=== PATIENT | female | born 1995 | race Caucasian/White ===

== ENCOUNTER → 2016-10-07 | Outpatient (CLI) | payer OTHER ==
[~2016-10-07] MED LIST: PRENTAB65 PO
[2016-10-07 14:41] LABS: BASO % 0.2 %; BASO ABS # 0.02 K/uL (0-0.2); COMPLETE YES; EOS % 1.4 %; HEMATOCRIT 41.6 % (37-47); IG% 0.2 %; LYMPH % 27.9 %; LYMPH ABS # 2.39 K/uL (1.2-3.4); MEAN CELL VOLUME 91.6 fL (80-100); MEAN CORPUSCULAR HEMOGLOBIN 30.2 pg (25-34); MEAN CORPUSCULAR HGB CONC 32.9 g/dl (32-36); MEAN PLATELET VOLUME 9.7 fL (7.4-10.4); MONO % 6.2 %; NEUT % 64.1 %; PLATELET COUNT 338 K/uL (130-400); RED BLOOD COUNT 4.54 M/uL (4.2-5.4); WHITE BLOOD COUNT 8.56 K/uL (4.8-10.8)
== END | disposition home or self-care (01) ==
LOC: C.LAB1850 12:33
PROVIDERS: ATTEND Obstetrics & Gynecology
DX: Z34.90 Encounter for supervision of normal pregnancy, unspecified, unspecified trimester (principal)

== ENCOUNTER → 2016-10-07 | Outpatient (CLI) | payer OTHER ==
[2016-10-07 15:51] LABS: URINE APPEARANCE TURBID (CLEAR); URINE BILIRUBIN NEG (NEG); URINE COLOR YELLOW; URINE EPITHELIAL CELL AUTO 20-30 /lpf (0-5); URINE NITRITE NEG (NEG); URINE PH 7.5 (4.5-7.5); URINE SPECIFIC GRAVITY 1.017 (1.000-1.030); UROBILINOGEN NEG (NEG)
[2016-10-07 15:53] LABS: MANUAL MICROSCOPIC REQUIRED? NO; REVIEW REQ? NO
[2016-10-09 15:08] LABS: CHLAMYDIA TRACH RNA*** NOT DETECTED (NOT DETECTED); GC (NEIS GONORRHOEAE)RNA** NOT DETECTED (NOT DETECTED)
== END | disposition home or self-care (01) ==
LOC: C.LABSPEC 15:38
PROVIDERS: ATTEND Obstetrics & Gynecology
DX: Z34.90 Encounter for supervision of normal pregnancy, unspecified, unspecified trimester (principal)

== ENCOUNTER → 2016-12-04 | Outpatient (CLI) | payer OTHER ==
[2016-12-04 14:58] LABS: GTGD 50 Grams
== END | disposition home or self-care (01) ==
LOC: C.LAB1850 11:09
PROVIDERS: ATTEND Obstetrics & Gynecology
DX: Z34.90 Encounter for supervision of normal pregnancy, unspecified, unspecified trimester (principal)

== ENCOUNTER → 2017-03-04 | Outpatient (CLI) | payer OTHER ==
[2017-03-04 16:25] LABS: URINE APPEARANCE CLOUDY (CLEAR); URINE BILIRUBIN NEG (NEG); URINE COLOR YELLOW; URINE EPITHELIAL CELL AUTO >30 /lpf (0-5); URINE NITRITE NEG (NEG); URINE PH 7.5 (4.5-7.5); URINE SPECIFIC GRAVITY 1.012 (1.000-1.030); UROBILINOGEN NEG (NEG)
[2017-03-04 16:28] LABS: MANUAL MICROSCOPIC REQUIRED? NO; REVIEW REQ? YES
[2017-03-04 18:05] LABS: GTGD 50 Grams
[2017-03-04 19:48] LABS: HEMATOCRIT 35.9 % (37-47)
== END | disposition home or self-care (01) ==
LOC: C.LAB1850 14:47
PROVIDERS: ATTEND Obstetrics & Gynecology
DX: Z34.93 Encounter for supervision of normal pregnancy, unspecified, third trimester (principal)

== ENCOUNTER → 2017-04-21 | Outpatient (CLI) | payer OTHER | END | disposition home or self-care (01) | LOC: C.LABSPEC 13:39 | PROVIDERS: ATTEND Obstetrics & Gynecology | DX: Z34.93 Encounter for supervision of normal pregnancy, unspecified, third trimester (principal) ==

== ENCOUNTER 2017-04-29 12:50 | Outpatient (CLI) | payer OTHER ==
[~2017-04-29] VITALS: Ht 170.2 cm; Wt 97.5 kg
[2017-04-29] MEDS ORDERED: D5W AND LACTATED RINGERS 500 ML IV ONE (13:13)
[2017-04-29] MEDS ORDERED: D5W AND LACTATED RINGERS 1,000 ML IV SCH (13:13)
[2017-04-29] MEDS ORDERED: ONDANSETRON INJ 2 MG/ML 2 ML VIAL ONE (14:16)
[2017-04-29] MEDS ORDERED: ONDANSETRON INJ 2 MG/ML 2 ML VIAL IV PRN (14:30)
[2017-04-29 14:55] VITALS: Ht 170.2 cm; Wt 97.5 kg
[2017-04-29] MEDS ORDERED: PRENTAB65 PO (14:55)
[2017-04-29] MEDS ORDERED: NURSING VERBAL MED ORDER ONE (15:15)
[2017-04-29] MEDS ORDERED: ACETAMINOPHEN 325 MG TAB ONE (15:17)
[2017-04-29] MEDS ORDERED: ACETAMINOPHEN 325 MG TAB PO ONE (15:30)
== END 2017-04-29 16:55 | disposition home or self-care (01) ==
LOC: C.LD 12:50 → C.OPB 12:50
PROVIDERS: ATTEND Obstetrics & Gynecology
DX: O99.283 Endocrine, nutritional and metabolic diseases complicating pregnancy, third trimester (principal); E86.0 Dehydration; O99.613 Diseases of the digestive system complicating pregnancy, third trimester; K52.9 Noninfective gastroenteritis and colitis, unspecified; O36.8130 Decreased fetal movements, third trimester, not applicable or unspecified; Z3A.37 37 weeks gestation of pregnancy

== ENCOUNTER 2017-05-17 04:55 | Inpatient (IN) | payer OTHER ==
[~2017-05-17] VITALS: Ht 170.2 cm; Wt 96.2 kg
[2017-05-17] MEDS ORDERED: LACTATED RINGER'S 1000ML 1,000 ML IV PRN (05:30)
[2017-05-17] MEDS ORDERED: LACTATED RINGER'S 1000ML 1,000 ML IV SCH (05:30)
[2017-05-17 05:38] VITALS: Ht 170.2 cm; Wt 96.2 kg
[2017-05-17 06:26] LABS: MEAN CELL VOLUME 92.7 fL (80-100); MEAN CORPUSCULAR HEMOGLOBIN 30.2 pg (25-34); MEAN CORPUSCULAR HGB CONC 32.6 g/dl (32-36); MEAN PLATELET VOLUME 10.1 fL (7.4-10.4); PLATELET COUNT 205 K/uL (130-400); WHITE BLOOD COUNT 11.35 K/uL (4.8-10.8)
[2017-05-17] MEDS ORDERED: BUPIVACAINE 0.25% 30 ML VIAL ONE (06:36)
[2017-05-17] MEDS ORDERED: FENTANYL CITRATE INJ 50 MCG/1 ML 2 ML VIAL ONE (06:37)
[2017-05-17] MEDS ORDERED: FENTANYL 2MCG/ML ROPIV 1.25MG/ML 100ML BAG EPI ONE (06:37)
[2017-05-17] MEDS ORDERED: EpHEDrine SULFATE INJ 50 MG/ML AMP ONE (06:37)
[2017-05-17] MEDS ORDERED: ONDANSETRON INJ 2 MG/ML 2 ML VIAL IV PRN (08:15)
[2017-05-17] MEDS ORDERED: FENTANYL 2MCG/ML ROPIV 1.25MG/ML 100ML BAG EPI PRN (08:15)
[2017-05-17] MEDS ORDERED: NALOXONE HCL INJ 0.4 MG/1 ML VIAL/CARP IV PRN (08:15)
[2017-05-17] MEDS ORDERED: EpHEDrine SULFATE INJ 50 MG/ML AMP IV PRN (08:15)
[2017-05-17] MEDS ORDERED: NALOXONE HCL INJ 1 MG in SODIUM CHLORIDE 0.9% 1000ML 1,000 ML IV PRN (08:15)
[2017-05-17] MEDS ORDERED: NALBUPHINE HCL INJ 10 MG/ML AMP IV PRN (08:15)
[2017-05-17] MEDS ORDERED: DiphenhydrAMINE HCL 50 MG/ML VIAL IV PRN (08:15)
[2017-05-17] MEDS ORDERED: LACTATED RINGER'S 1000ML 500 ML IV PRN ×2 (08:15→08:33)
[2017-05-17] MEDS ORDERED: OXYTOCIN 30 UNITS/500ML NSS IV PRN ×2 (08:45→12:00)
[2017-05-17] MEDS ORDERED: HYDROCORTISONE ACETATE 25 MG SUPP PR PRN (12:00)
[2017-05-17] MEDS ORDERED: DIPHTHERIA/TETANUS/PERTUSSIS 0.5 ML SYR/VIAL IM. ONE (12:00)
[2017-05-17] MEDS ORDERED: ACETAMINOPHEN 325 MG TAB PO PRN (12:00)
[2017-05-17] MEDS ORDERED: BENZOCAINE 20% AER SPR 82.5 GM CAN EXT PRN (12:00)
[2017-05-17] MEDS ORDERED: LANOLIN OINT EXT PRN ×2 (12:00)
[2017-05-17] MEDS ORDERED: SUPERCREAM 0.870 % 15GM JAR EXT PRN (12:00)
[2017-05-17] MEDS ORDERED: ACETAMINOPHEN/CODEINE 300/30MG TAB PO PRN (12:00)
[2017-05-17] MEDS: IBUPROFEN 600 MG TAB PO PRN ×3 (13:01→22:06)
--- NOTE | 2017-05-17 14:36 | DELIVERY SUMMARY ---
DATE OF OPERATION: 05/17/2017 DATE OF DELIVERY: 05/17/2017 FINDINGS: Viable male infant with Apgars of 8 and 9. Baby delivered over an intact perineum. Nuchal cord x1 reduced on the perineum. Cord gases, cord blood samples obtained. Placenta delivered spontaneously. Estimated blood loss 300 mL. LABOR NOTE: The patient is a 21-year-old 2, para 1 with an EDC of 19 May at 39+ weeks gestational age; who presented to labor and delivery with complaint of spontaneous onset of labor. The patient states contractions began shortly after midnight. She denied rupture of membranes or vaginal bleeding. The patient has had a benign course. Her blood type O positive, antibody negative, rubella immune, hepatitis B negative. She declined a quad screen. She had normal 1 hour Glucola x2 and a negative 3rd trimester beta strep culture. Upon admission, patient was 4 cm dilated, 50% efface, -2 station, tracing was category 1, she was neto regularly. Anesthesia was consulted and an epidural was placed. Following placement of the epidural, contraction spaced out and Pitocin augmentation was initiated. The patient began to develop decelerations with contractions returned to baseline, necessitating discontinuation of the Pitocin temporarily. scalp electrode was applied, positional changes were employed and Pitocin was reinitiated. The patient progressed to full dilatation, began her second stage, she pushed for approximately 30 minutes, delivering a viable male with description as above. Nuchal cord x1 was reduced on the perineum. Cord gases and cord blood samples obtained. Placenta was delivered spontaneously. Inspection of the perineum was found to be intact. Estimated blood loss was 300 mL. Sponge and needle count was correct. I attest to the content of the Intraoperative Record and any orders documented therein. Any exception s are noted below.
--- NOTE | 2017-05-17 14:36 | Anesthesia Procedure Note ---
Anesthesia Epidural Removal Nt Date & Time May 17, 2017 at 14:36 Vital Signs Pain Intensity: 4.0 Notes Mental Status: alert / awake / arousable, participated in evaluation Nausea / Vomiting: adequately controlled Pain: adequately controlled Airway Patency, RR, SpO2: stable & adequate BP & HR: stable & adequate Hydration State: stable & adequate Neuraxial Anesthesia: was administered Anesthetic Complications: no major complications apparent, pt satisfied with anesthetic care Epidural: removed without complications, with tip intact
[2017-05-17 15:50] VITALS: BP 128/79; PULSE 92; TEMP 36.9
[2017-05-17 19:10] VITALS: BP 133/78; PULSE 92; TEMP 36.5
[2017-05-17] MEDS: DOCUSATE SODIUM 100 MG CAP PO SCH (20:26)
[2017-05-17] MEDS: ACETAMINOPHEN/CODEINE 300/30MG TAB PO PRN (22:05)
[2017-05-17 23:55] VITALS: BP 127/79; PULSE 94; TEMP 36.8
[2017-05-18] MEDS: IBUPROFEN 600 MG TAB PO PRN ×4 (03:04→21:48)
[2017-05-18 03:10] VITALS: BP 116/78; PULSE 85; TEMP 36.8
--- NOTE | 2017-05-18 07:22 | Progress Note ---
Subjective May 18, 2017. Subjective conversation w/ patient, physical exam Ambulation: ambulating normally Diet Tolerance: Regular Diet Feeding Type: Breast Feeding Objective Vital Signs Date Time Temp Pulse Resp B/P (MAP) Pulse Ox O2 Delivery O2 Flow Rate FiO2 05/18/17 03:10 36.8 85 18 116/78 (91) Room Air 05/17/17 23:55 Room Air 05/17/17 23:55 36.8 94 16 127/79 (95) Room Air 05/17/17 19:10 36.5 92 18 133/78 (96) Room Air 05/17/17 15:50 Room Air 05/17/17 15:50 36.9 92 18 128/79 (95) Room Air Physical Exam General Appearance: WELL-APPEARING, NO APPARENT DISTRESS Fundus: Firm, Non-Tender Extremities: no calf tenderness Laboratory Results Last 24 Hours Test 05/18/17 04:44 Assessment and Plan Post- Day#: 1 Continue Routine Care: - doing well - desires d/c - instructions given - f/u in 6 weeks
--- NOTE | 2017-05-18 07:24 | Discharge Instructions ---
Discharge Instructions Date of Service May 18, 2017. Admission Reason for Admission: LABOR Discharge Discharge Diagnosis / Problem: same Discharge Goals Goal(s): Routine recovery after delivery Medications Continue Dispensed Medications: supercream, dermaplast Activity Recommendations Activity Limitations: as noted below . Current Hospital Diet Patient's current hospital diet: Regular OB Diet Discharge Diet Recommended Diet: Regular OB Diet Procedures Procedures Performed: Pending Studies Studies pending at discharge: no Medical Emergencies . Who to Call and When: Medical Emergencies: If at any time you feel your situation is an emergency, please call 911 immediately. . Non-Emergent Contact Non-Emergency issues call your: Administration Dean Call Non-Emergent contact if: you have a fever, temperature is above 100.5 . . "Provider Documentation" section prepared by Dandre Black. . VTE Core Measure Inpt VTE Proph given/why not?: Treatment not indicated
[2017-05-18 07:38] LABS: HEMATOCRIT 35.7 % (37-47)
[2017-05-18 07:40] VITALS: BP 128/84; PULSE 89; TEMP 36.7
[2017-05-18] MEDS: PRENATAL VITAMIN TAB PO SCH (07:41)
[2017-05-18] MEDS: FERROUS SULFATE 325 MG TAB PO SCH (07:41)
[2017-05-18] MEDS: DOCUSATE SODIUM 100 MG CAP PO SCH ×2 (07:41→19:34)
[2017-05-18 11:50] VITALS: BP 121/80; PULSE 87; TEMP 36.8
[2017-05-18 15:50] VITALS: BP 139/95; PULSE 103; TEMP 36.7
[2017-05-18] MEDS ORDERED: BISACODYL 5 MG TABEC PO SCH (20:00)
[2017-05-19 00:10] VITALS: BP 131/80; PULSE 97; TEMP 36.5
[2017-05-19] MEDS: IBUPROFEN 600 MG TAB PO PRN ×2 (02:29→08:26)
[2017-05-19] MEDS: ACETAMINOPHEN/CODEINE 300/30MG TAB PO PRN (06:01)
[2017-05-19 07:30] VITALS: BP 131/80; PULSE 80; TEMP 36.5
--- NOTE | 2017-05-19 07:55 | Progress Note ---
Subjective May 19, 2017. Subjective conversation w/ patient, physical exam, lab review Voiding: no voiding problems Passing Gas: Yes Diet Tolerance: Regular Diet Lochia: Small Feeding Type: Breast Feeding Pain: controlled with oral pain meds Objective Vital Signs Date Time Temp Pulse Resp B/P (MAP) Pulse Ox O2 Delivery O2 Flow Rate FiO2 05/19/17 07:30 36.5 80 20 131/80 (97) 05/19/17 00:10 36.5 97 16 131/80 (97) 05/19/17 00:10 Room Air 05/18/17 15:50 36.7 103 18 139/95 (110) Room Air 05/18/17 15:50 Room Air 05/18/17 11:50 36.8 87 18 121/80 (94) Room Air Physical Exam General Appearance: WELL-APPEARING, WD/WN, NO APPARENT DISTRESS Abdomen: non tender, soft Fundus: Firm, Non-Tender, Relation to Umbilicus (at u) Extremities: non-tender, normal inspection, no pedal edema Assessment and Plan Post- Day#: 2 Continue Routine Care: Doing well. Plan d/c today or rooming in if baby stays. Instructions reviewed.
[2017-05-19] MEDS: DOCUSATE SODIUM 100 MG CAP PO SCH (08:25)
[2017-05-19] MEDS: FERROUS SULFATE 325 MG TAB PO SCH (08:25)
[2017-05-19] MEDS: PRENATAL VITAMIN TAB PO SCH (08:26)
--- NOTE | 2017-05-19 10:35 | Discharge Instructions ---
Discharge Instructions Date of Service May 19, 2017. Admission Reason for Admission: LABOR Discharge Discharge Diagnosis / Problem: recovery from normal delivery Discharge Goals Goal(s): Routine recovery after delivery Medications Continue Dispensed Medications: supercream, dermaplast, tucks, lansinoh Activity Recommendations Activity Limitations: per Instructions/Follow-up section . Instructions / Follow-Up Instructions / Follow-Up ACTIVITY RECOMMENDATIONS: * Gradual return to full activity over the next 2-3 weeks. * No lifting - nothing heavier than baby over the next 2-3 weeks. * Do not engage in vigorous exercise, sexual activity or sports until cleared by your physician. * Do not drive or operate any motorized equipment until cleared by your physician. * You may shower/bathe daily. MEDICATIONS: For discomfort or pain, you may use Acetaminophen (Tylenol), Ibuprofen (Advil), or Naproxen (Aleve) following the package directions. For constipation you may use Colace following the package directions. BREAST CARE: If you are not breast feeding: * Wear a supportive bra 24 hours a day for one to two weeks. * Avoid stimulating your breasts and nipples as much as possible during the first few weeks after delivery. * When taking a shower, have the warm water hit your back, not breasts. * When your breasts feel full, apply ice packs. Usually three to four times a day helps ease the discomfort. * Take a mild pain medication (Tylenol / Motrin) when you are uncomfortable. If breast feeding: * Use breast milk to lubricate nipples. Lansinoh cream may be used for sore nipples. You do not need to remove cream prior to breast feeding. If using a different brand of cream, check the label for directions regarding removal of cream prior to nursing. * Wear a supportive bra. * If having problems with breasts or breast feeding, call a operational risk consultant or your health care provider. EPISIOTOMY CARE: After delivery, if you have an episiotomy (stitches), the following steps will ease discomfort and aid healing. * For the first 24 hours after delivery, place ice packs next to your episiotomy to help reduce swelling. * After the first 24 hour-period, sitz baths, either portable or in the tub, are suggested. A shower with a shower arm sprayed over the episiotomy may be comforting. * Yana care should be done after each voiding and bowel movement. Squirt warm water from a plastic bottle over the perineum (region of the body between the anus and urinary opening) and pat dry. * Use Dermoplast to ease discomfort. Shake container. [place] directly over the episiotomy. Place a Tucks on a clean sanitary pad next to your episiotomy. SPECIAL CARE INSTRUCTIONS: When you are discharged from the hospital, it is important for you to follow the instructions listed below: * During the first week at home, you should be able to care for yourself and your baby. In addition, the usual light household activities are encouraged. * Limit your activities to the way you feel. Do not try to clean the house or move furniture. Be sensible. * If you actively engage in sports and have done so up until the time of your delivery, you may resume these activities as soon as you feel able. This may take up to one month or even longer. Use good judgment. * Continue to take your vitamins for at least six weeks after the of your baby. * Your diet need not be limited unless you were on a special diet before your delivery. Breast-feeding mothers need around 2500 calories per day and at least 64-80 ounces of fluid per day (8 to 10 glasses). * You should eat foods from the four major food groups. Crash diets or fad diets are to be avoided. Eating lean meats, fresh fruits and vegetables, low-fat dairy products, high fiber foods and a regular exercise program, will help you get back to your pre- weight without putting your health at risk. * Constipation is sometimes a problem after delivery. Take a mild laxative as needed. If breast feeding, Milk of Magnesia is acceptable to use. You may use a suppository or Fleets enema if no episiotomy. * A daily shower or tub bath is suggested. Be sure to thoroughly and gently dry the perineum. * A bloody vaginal discharge will usually continue until around four weeks post . A small amount of bleeding may continue for as long as six weeks. Vaginal discharge changes from the bright red bleeding after delivery to pink then brownish and finally yellowish-pink before becoming white and disappearing. * Bleeding may increase with activity. Your first period may come in 4-8 weeks. If you are breast feeding, your period may be delayed even longer. * [place] (sex) can begin whenever both you and your partner feel comfortable and do not have any form of genital infection. It is recommended that you wait at least six weeks for internal and external healing to occur. If you have questions, please talk to your health care practitioner. A condom should be used to prevent infection and . * Foreplay, gentle intercourse and lubrication is very important the first several times to prevent pain. A water-based lubricant such as K-Y jelly or Astroglide may be used. * If you have RH negative blood and your baby is RH positive, you will receive RHOGAM by injection prior to discharge. The nurse will give you a card to keep with you that has the date and place that you received RHOGAM after delivery. * During your care, you had a Rubella screen done to check for the presence of rubella antibodies in your blood. If your test was negative, you will receive a Rubella vaccine prior to discharge. This vaccine may cause a fever, soreness at the injection site and flu-like symptoms. If these symptoms persist, notify your health care practitioner. is not advised for one month after a Rubella vaccine. * Verbalizes understanding of car seat law as reviewed with patient nursing. * Car Seat hand-out given and reviewed with patient by nursing. * Shaken baby information reviewed with patient by nursing. Call you doctor if: * Heavy bleeding (saturating several pads an hour) or passing clots the size of your fist. * A fever >101 degrees F (38.3 degrees C) on two occasions four hours apart and /or chills. * Unusual pain in the pelvic or vaginal areas. * "Baby Blues" lasting longer than two weeks. If you have any questions or concerns, call your health care practitioner at . FOLLOW UP VISIT: * Please call the office at to schedule a 6 week examination. It is important you keep this appointment. It is important for you to make arrangements for either yearly or twice yearly check-ups thereafter. Current Hospital Diet Patient's current hospital diet: Regular OB Diet Discharge Diet Recommended Diet: Regular OB Diet Procedures Procedures Performed: Pending Studies Studies pending at discharge: no Medical Emergencies . Who to Call and When: Medical Emergencies: If at any time you feel your situation is an emergency, please call 911 immediately. . Non-Emergent Contact Non-Emergency issues call your: Biological Inspector . . "Provider Documentation" section prepared by Marisela Rodríguez. . VTE Core Measure Inpt VTE Proph given/why not?: Treatment not indicated
[2017-05-19 12:45] VITALS: BP_DIAS 80; PULSE 80; TEMP 36.5
== END 2017-05-19 12:45 | disposition home or self-care (01) | DRG 775 ==
LOC: C.OPB 04:55 → C.LD 04:55 → C.OPB 05:31 → C.OBG 15:04 → EDSTATUS 05-19 04:54
PROVIDERS: ADMIT Obstetrics & Gynecology; ATTEND Obstetrics & Gynecology
PROC: 10E0XZZ Delivery of Products of Conception, External Approach (ICD-10-PCS; principal; 2017-05-17)
DX: O69.81X0 Labor and delivery complicated by cord around neck, without compression, not applicable or unspecified (principal); O76 Abnormality in fetal heart rate and rhythm complicating labor and delivery; Z3A.39 39 weeks gestation of pregnancy; Z37.0 Single live birth

== ENCOUNTER 2021-11-08 07:30 | Inpatient (IN) ==
--- NOTE | 2021-11-01 15:43 | History & Physical Report ---
Date of Service November 01, 2021 Assessment & Plan (1) Dichorionic diamniotic twin : Plan: Dichorionic diamniotic twin gestation at 38 weeks now presents for primary section with bilateral tubal ligation. The procedures of both the section and tubal ligation were reviewed at length with the patient and all her questions were answered to her satisfaction. The risk for both ectopic and intrauterine pregnancies following the tubal ligation were also reviewed with the patient and she would still like to proceed. History of Present Illness Primary Care Provider: Olivia Mobley MD Patient is a 26-year-old 3 para 2-0-0-2 female EDC of 11/22/2021 who presents with dichorionic diamniotic twins at 38 weeks for primary section. Patient has a history of PCOS and conceived this with Femara. She has had 2 prior spontaneous vaginal deliveries. She would like to proceed with primary low-transverse section regardless of the twins positions. She is also requesting a bilateral tubal ligation at the time of the section. has otherwise been uncomplicated, the twins have been appropriate for gestational age with a 4% discordance. Allergies Allergy/AdvReac Type Severity Reaction Status Date / Time adhesive Allergy Intermediate WELTS WITH Verified 11/01/21 15:05 SOME TAPES Home Medications Medication Instructions Recorded Confirmed Type prenat.vits,naomi,[id number] 1 tab PO QAM 04/08/21 11/01/21 History aspirin 81 mg chewable tablet 81 mg PO QAM 06/19/21 11/01/21 History Patient History Medical History (Updated 11/01/21 @ 15:24 by Florida Winter RN) Anxiety History of asthma A CHILD-NO INHALERS History of COVID-19 DX'D 05/10/21 [place]-COUGH, SOME FATIGUE-RECOVERED AT HOME-RESOLVED History of melanoma Polycystic ovarian syndrome HX Varicella vaccination Surgical History (Updated 11/01/21 @ 15:09 by Florida Winter, SPENCER) History of tooth extraction S/P skin cancer resection Melanoma of R lateral thigh S/P tonsillectomy Status post vaginal delivery x2 Family History (Updated 11/01/21 @ 15:10 by Florida Winter, RN) Father Skin cancer Dyslipidemia Brother Depression Grandmother (Maternal) Skin cancer Kidney stones Hypertension Grandmother (Paternal) Lung disease Grandfather (Paternal) Myocardial infarction Mother Family history of reaction to anesthesia PONV Denies family history of Ovarian cancer Prostate cancer Breast cancer Colorectal cancer Social History Smoking Status: Never smoker Second Hand Exposure: No; Hx Alcohol Use: Yes Hx Substance Use: No Preferred Language: Sinhala Communication Ability: Effective Visual Impairment: No Limitations Hearing Ability: Normal Collection Systems Worker Required: No Beliefs That Will Affect Care: None marital status: marital status details: Serge Tyler (38) [phone] Current Living Situation: Spouse and Family Current Living Situation Comment: lives with spouse, 2 sons, no pets current occupational status: employed 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 Feels Safe at Home: Yes Childhood Exposure to Second-Hand Smoke: No Dental Care, Regularly: No Physical Activity Frequency: 1-2 Times per Week Gender Identity: Female Assistive Devices: None Review of Systems All systems reviewed & are unremarkable except as noted in HPI & below Physical Exam Constitutional: WD/WN, vitals as above Respiratory: normal respiratory effort, lungs clear to auscultation Cardiovascular: RRR, no murmur, no edema Psychiatric: A+Ox3, euthymic affect Genitourinary: OB Exam Abdomen: + fundal height (38 cm) and + vertex (TwinA vertex- Twin B- breech) Manual OB Exam: + cervical dilation (closed), + cervical effacement 50% and + station -2 OB Exam Monitor Tracing: + external FHT monitor used, + external uterine monitor used, + category I and + normal FHT variability Coding Level of Care Code None Diagnoses Dichorionic diamniotic twin O30.049
--- NOTE | 2021-11-04 08:47 | Anesthesiology Consultation ---
Date of Service November 04, 2021 Assessment & Plan (1) Encounter for pre-operative examination: COVID screening: Per assessment on 11/01: No known COVID-19 positive contacts or current COVID-19 related symptoms. Travel screen negative. Patient vaccinated. Surgeon arranging preop COVID testing. Awaiting results. Chart Review Chart Review: entry level software engineer initiated History Surgery Operation Date: 11/08/21 07:30 Proposed Procedures p Section (Delivery of baby through abdominal incision), (Twins) Sandeep ateral Tubal Ligation - Marisela Gamboa MD, FACOG Height/Weight Height: 5 ft 6.5 in Weight: 105.687 kg Allergies Allergy/AdvReac Type Severity Reaction Status Date / Time adhesive Allergy Intermediate Welts with Verified 11/04/21 08:45 some tapes Medications Home Medications Medication Instructions Recorded Confirmed Last Taken prenat.vits,naomi,[id number] 1 tab PO QAM 04/08/21 11/01/21 10/21/21 07:00 aspirin 81 mg chewable tablet 81 mg PO QAM 06/19/21 11/01/21 10/21/21 07:00 Past Medical History Medical History Anxiety History of asthma As child, no inhaler History of COVID-19 Dx 05/10/21 ([place]) > symptoms at time: cough, fatigue > resolved History of melanoma Polycystic ovarian syndrome HX Varicella vaccination Past Family History Family History Father Skin cancer Dyslipidemia Brother Depression Grandmother (Maternal) Skin cancer Kidney stones Hypertension Grandmother (Paternal) Lung disease Grandfather (Paternal) Myocardial infarction Mother Family history of reaction to anesthesia PONV Denies family history of Ovarian cancer Prostate cancer Breast cancer Colorectal cancer Past Surgical History Surgical History History of tooth extraction S/P skin cancer resection Melanoma of R lateral thigh S/P tonsillectomy Status post vaginal delivery x2 Social History Smoking Status: Never smoker Do You Dip or Chew Tobacco: No Hx Alcohol Use: No alcohol intake frequency: holidays/special occasions only Alcohol Intake Frequency Comment: NON Hx Substance Use: No substance use type: does not use
[~2021-11-08 07:30] MED LIST changes: +CITRIC ACID/SODIUM CITRATE 15 ML UDC PO SCH; +LACTATED RINGER'S 1,000 ML IV SCH; -PRENTAB65 PO; +ceFAZolin 3,000 MG in DEXTROSE 5% 50 ML IV SCH
[2021-11-08] MEDS ORDERED: MoRPHine SULFATE PF 1 MG/ML 10 ML AMP/VIAL ONE (08:34)
[2021-11-08 09:21] LABS: Basophils # (auto) 0.03 K/uL (0-0.2); Basophils % (auto) 0.4 %; Eosinophils # (auto) 0.08 K/uL (0-0.5); Hematocrit (blood only) 38.5 % (37-47); Hemoglobin 12.8 g/dL (12.0-16.0); Immature Granulocytes # (auto) 0.03 K/uL (0.00-0.02); Immature Granulocytes % (auto) 0.4 %; Lymphocytes # (auto) 2.42 K/uL (1.2-3.4); Lymphocytes % (auto) 31.1 %; Mean Corpuscular Hemoglobin 30.8 pg (25-34); Mean Corpuscular Hgb Conc 33.2 g/dL (32-36); Mean Corpuscular Volume 92.5 fL (80-100); Mean Platelet Volume 10.4 fL (7.4-10.4); Monocytes # (auto) 0.63 K/uL (0.11-0.59); Monocytes % (auto) 8.1 %; Neutrophils # (auto) 4.58 K/uL (1.4-6.5); Platelet Count 188 K/uL (130-400); RDW Coefficient of Variation 15.2 % (11.5-14.5); RDW Standard Deviation 51.1 fL (36.4-46.3); Red Blood Count 4.16 M/uL (4.2-5.4); White Blood Count 7.77 K/uL (4.8-10.8)
--- NOTE | 2021-11-08 09:27 | History & Physical Bridge Note ---
Date of Service November 08, 2021 History & Physical Bridge Note I have examined the patient, reviewed the History & Physical and in the interval since the performance of the History & Physical I have noted the following changes of clinical significance: no changes noted
[2021-11-08] MEDS ORDERED: SODIUM CHLORIDE 0.9% 250 ML IV PRN (09:45)
[2021-11-08] MEDS ORDERED: LIDOCAINE 2% MPF LOCAL 5 ML VIAL INFIL ONE (10:22)
[2021-11-08] MEDS ORDERED: METOCLOPRAMIDE HCL INJ 5 MG/ML 2 ML VIAL ONE (10:22)
[2021-11-08] MEDS ORDERED: ONDANSETRON INJ 2 MG/ML 2 ML VIAL ONE (10:22)
[2021-11-08] MEDS ORDERED: PROPOFOL IV EMULSION 10 MG/ML 20 ML VIAL IV ONE (10:22)
[2021-11-08] MEDS ORDERED: PHENYLEPHRINE 100MCG/ML 5ML SYR ONE (10:22)
[2021-11-08] MEDS ORDERED: OXYTOCIN 10 UNITS/ML 10ML VIAL ONE (10:22)
[2021-11-08] MEDS ORDERED: ONDANSETRON INJ 2 MG/ML 2 ML VIAL IV PRN (10:23)
[2021-11-08] MEDS ORDERED: MoRPHine SULFATE PF 1 MG/ML 10 ML AMP/VIAL INT SPINAL ONE (10:23)
[2021-11-08] MEDS ORDERED: LACTATED RINGER'S 500 ML IV PRN (10:23)
[2021-11-08] MEDS ORDERED: NALOXONE HCL 1 MG in SODIUM CHLORIDE 0.9% 1000ML 1,000 ML IV PRN (10:23)
[2021-11-08] MEDS ORDERED: ePHEDrine sulfate 50 MG/ML AMP IV PRN (10:23)
[2021-11-08] MEDS ORDERED: diphenhydrAMINE 50 MG/ML VIAL IV PRN (10:23)
[2021-11-08] MEDS ORDERED: NALBUPHINE HCL INJ 10 MG/ML AMP IV PRN (10:23)
[2021-11-08] MEDS ORDERED: NALOXONE HCL 0.4 MG/1 ML VIAL/CARP IV PRN (10:23)
[2021-11-08] MEDS ORDERED: NALOXONE HCL 0.08 MG in SYRINGE 1.8 ML IV PRN (10:23)
[2021-11-08] MEDS ORDERED: PROMETHAZINE HCL 12.5 MG in SODIUM CHLORIDE 0.9% 50 ML IV PRN (10:23)
[2021-11-08] MEDS ORDERED: NO NARCOTICS OR SEDATIVES SCH (10:30)
[2021-11-08] MEDS ORDERED: DC INTRASPINAL MORPHINE SCH (10:30)
[2021-11-08] MEDS ORDERED: SODIUM CHLORIDE 0.9% 1000ML 1,000 ML IV SCH (10:30)
[2021-11-08] MEDS ORDERED: MAGNESIUM HYDROXIDE SUSP 30 ML UDC PO PRN (11:18)
[2021-11-08] MEDS ORDERED: HYDROCORTISONE ACETATE 25 MG SUPP PR PRN (11:18)
[2021-11-08] MEDS ORDERED: SENNA 8.6 MG TAB PO PRN (11:18)
[2021-11-08] MEDS ORDERED: BENZOCAINE 20% AER SPR 82.5 GM CAN EXT PRN (11:18)
[2021-11-08] MEDS ORDERED: DIPHTHERIA/TETANUS/PERTUSSIS 0.5 ML SYR/VIAL IM ONE (11:18)
--- NOTE | 2021-11-08 11:27 | Post Operative Brief Note ---
PG Immediate Post Op with CF Date of Surgery November 08, 2021 Pre & Post Diagnosis Operation Date: 11/08/21 10:00 Pre-op DX- DI-DI twin gestation desires section unwanted fertility Post-op DX- vertex/vertex presentation Twin A- girl Twin B- boy I identified the patient and participated in the time-out.: Yes Procedure Operation Date: 11/08/21 10:00 Actual Procedures p Section (Twins), (Bilateral) - Marisela Gamboa MD, FACOG s Bilateral Tubal Ligation - Marisela Gamboa MD, FACOG Surgeon Marisela Gamboa MD, FACOG Manager System Barbara Rivas MD Estimated Blood Loss 400 Findings Consistent with Post-Op Diagnosis Specimens Specimen Description: A: Placenta- B: Cord blood baby "A" C: Cord blood baby "B" D: Portion of right and left fallopian tubes Drains Burroughs Catheter (Inserted after spinal, patent and draining clear yellow urine throughout entire procedure) Anesthesia Type Spinal Complications none Disposition Accompanied Patient To Recovery: Yes
[2021-11-08] MEDS ORDERED: LACTATED RINGER'S 1,000 ML IV SCH (11:30)
[2021-11-08] MEDS: KETOROLAC 30 MG/ML VIAL IV PRN ×2 (11:39→20:08)
--- NOTE | 2021-11-08 11:56 | Operative Report ---
PG Post Operative Report Pre & Post Diagnosis Operation Date: 11/08/21 10:00 <No data on this case meets the specified criteria> I identified the patient and participated in the time-out.: Yes Procedure Operation Date: 11/08/21 10:00 Actual Procedures p Section (Twins), (Bilateral) - Marisela Gamboa MD, FACOG s Bilateral Tubal Ligation - Marisela Gamboa MD, FACOG Surgeon Marisela Gamboa MD, FACOG Assembler [employer]oke Barbara Rivas MD Estimated Blood Loss 400 Findings Consistent with Post-Op Diagnosis Specimens placenta X2 Drains Burroughs to straight drainage- clear urine at end of case Anesthesia Type Spinal Complications none Disposition Accompanied Patient To Recovery: Yes Indications Patient is a 26-year-old 3 para 2-0-0-2 female EDC of 11/22/2021 who presents with dichorionic diamniotic twin gestation at 38 weeks. She desires a section for delivery with immediate tubal ligation. She understands the risk the procedure and is willing to proceed Description of Procedure At the patient received adequate subarachnoid block she was prepped and draped in usual sterile fashion. A low transverse skin incision was made with a scalpel and carried to the fascia with the same scalpel. The fascial incision was then extended with Jacques scissors and the underlying rectus muscles bluntly sharply dissected off of the overlying fascia. The rectus muscles were then bluntly divided in the midline and the underlying peritoneum entered bluntly. The bladder was then taken down off the anterior surface of the uterus. It was placed behind the bladder blade. The lower uterine segment was entered with a scalpel and extended transversely. The Presenting twin's membranes were then ruptured for clear fluid. During the process of delivering the presenting twin,which is male, the second twin ,which is female, descended pushing the presenting male twin superiorly. At this point it was easier to deliver the second twin (female) first. Membranes were ruptured for clear fluid on this twin. With the assistance of the vacuum, the female infant was delivered in the vertex presentation through the incision. The rest of the infant followed easily and was vigorous upon delivery. The Cord was then clamped and cut and identified as twin A (female). She was handed off to the Nursery team in attendance. Twin B (male) was then brought to the uterine incision with moderate fundal pressure and was delivered in the vertex presentation. This male was also vigorous upon delivery. Cord clamp was clamped and cut and the twin was handed off to the nursery team who was in attendance. The placenta was then extracted intact with a three-vessel cord x2. The placentas were fused. The uterus was then exteriorized and covered with a clean lap sponge and the cavity explored for retained placental tissue or membranes.. Membranes in the lower uterine segment were removed with ring forceps and lap sponge. bleeding was Controlled with Fundal Massage and Dilute Pitocin. The Uterine Incision Was Then Closed in 2 Layers with 0 Monocryl in a Running Locking Imbricating Fashion. Hemostasis noted to be excellent. posterior cul de sac was suctioned for a small amount of fluid. Attention was then turned to the tubal ligation. The right fallopian tube was identified followed to its fimbriated end was then grasped in the midportion with a Lynn clamp. A knuckle of tube tube was developed with a tie of 3-0 plain catgut this was followed by a second ligature of the same. The knuckle of tube was then r emoved with Metzenbaum scissors and the remaining ends cauterized with the Bovie. The left fallopian tube was then identified and followed to its fimbriated end. A suture ligature was used to develop the knuckle of tube and this was followed by a second ligature of the same of 3-0 plain catgut. Knuckle tube was then removed with Metzenbaum scissors. Hemostasis noted to be excellent at both tubal sites. The uterus was then placed back inside the abdominal cavity. The gutters were explored and found to be free of any clot or fluid. The tubal sites were then examined once more continue to have excellent hemostasis as did the uterine incision. The rectus muscles were then brought together on the midline with individual stitches of 0 Monocryl. The fascia was closed in a running fashion with 0 Vicryl. After irrigating the adipose layer the skin edges were reapproximated with a subcuticular stitch of 4-0 Vicryl. Urine was clear at the end of the case mother and infant were doing well after delivery. I attest to the content of the Intraoperative Record and any orders documented therein. Any exceptions are noted below. OB Procedure Charges [id number] Add on Tubal for C/S
[2021-11-08] MEDS: OXYTOCIN 20 UNITS in LACTATED RINGER'S 1,000 ML IV SCH ×2 (13:12→21:18)
[2021-11-08] MEDS: SIMETHICONE 80 MG CHEW PO SCH ×2 (13:50→20:07)
[2021-11-08] MEDS: MoRPHine SULFATE 2 MG/ML CARP IV PRN ×2 (14:04→23:41)
--- NOTE | 2021-11-08 14:28 | Anesthesiology Progress Note ---
Date of Service November 08, 2021 Anesthesia Post Procedure Vital Signs Vital Signs: Temp Pulse Pulse Resp BP BP Pulse Ox 11/08/21 13:30 70 130/77 11/08/21 13:25 69 98 11/08/21 13:20 76 136/79 97 11/08/21 13:15 71 97 11/08/21 13:10 36.7 C 75 73 20 129/76 129/76 97 11/08/21 13:05 65 99 11/08/21 13:00 71 130/78 99 11/08/21 12:55 77 99 11/08/21 12:50 76 125/70 99 11/08/21 12:45 73 98 11/08/21 12:40 74 73 20 122/66 122/66 98 11/08/21 12:35 80 100 11/08/21 12:30 74 99 11/08/21 12:28 70 92 11/08/21 12:25 71 99 11/08/21 12:20 74 126/74 99 11/08/21 12:18 82 93 11/08/21 12:15 69 99 11/08/21 12:11 74 136/60 11/08/21 12:10 36.4 C L 77 72 18 119/71 100 11/08/21 12:09 85 91 11/08/21 12:05 68 100 11/08/21 12:00 76 72 20 119/71 119/71 100 11/08/21 11:55 76 100 11/08/21 11:50 75 71 20 126/75 100 11/08/21 11:46 77 91 11/08/21 11:45 72 100 11/08/21 11:40 72 68 20 129/73 129/73 100 11/08/21 11:35 77 100 11/08/21 11:30 71 69 20 133/80 133/80 100 11/08/21 11:25 73 98 11/08/21 11:23 89 88 L 11/08/21 11:20 74 78 20 126/63 126/83 100 11/08/21 11:15 80 100 11/08/21 11:10 36.4 C L 81 79 20 122/66 129/73 98 11/08/21 09:26 36.4 C L 91 H 20 145/82 H 11/08/21 08:38 91 H 145/82 H Pain Intensity Abdomen: Pain Intensity: 2 Transfer of Care Handoff Completed per policy Notes Mental Status: alert / awake / arousable Patient Amnestic to Procedure: Yes Nausea / Vomiting: adequately controlled Pain: adequately controlled Airway Patency, RR, SpO2: stable & adequate BP & HR: stable & adequate Hydration State: stable & adequate Anesthetic Complications: no major complications apparent
[2021-11-08] MEDS: DOCUSATE SODIUM 100 MG CAP PO SCH (20:07)
[2021-11-09] MEDS: KETOROLAC 30 MG/ML VIAL IV PRN (03:37)
[2021-11-09] MEDS ORDERED: MEPERIDINE HCL 50 MG/ML CARP IV PRN (04:23)
[2021-11-09] MEDS ORDERED: diphenhydrAMINE 50 MG/ML VIAL IV PRN (04:23)
[2021-11-09] MEDS ORDERED: PROMETHAZINE HCL 25 MG in SODIUM CHLORIDE 0.9% 50 ML IV PRN (04:23)
[2021-11-09] MEDS ORDERED: KETOROLAC 30 MG/ML VIAL IV PRN (04:23)
[2021-11-09] MEDS ORDERED: ONDANSETRON INJ 2 MG/ML 2 ML VIAL IV PRN (04:23)
[2021-11-09] MEDS ORDERED: diphenhydrAMINE Capsule 25 MG CAP PO PRN (04:23)
[2021-11-09 07:32] LABS: Basophils # (auto) 0.01 K/uL (0-0.2); Basophils % (auto) 0.1 %; Eosinophils # (auto) 0.06 K/uL (0-0.5); Eosinophils % (auto) 0.5 %; Hematocrit (blood only) 34.3 % (37-47); Hemoglobin 11.3 g/dL (12.0-16.0); Immature Granulocytes # (auto) 0.03 K/uL (0.00-0.02); Immature Granulocytes % (auto) 0.3 %; Lymphocytes # (auto) 1.45 K/uL (1.2-3.4); Lymphocytes % (auto) 13.3 %; Mean Corpuscular Hemoglobin 29.9 pg (25-34); Mean Corpuscular Hgb Conc 32.9 g/dL (32-36); Mean Corpuscular Volume 90.7 fL (80-100); Mean Platelet Volume 10.4 fL (7.4-10.4); Monocytes # (auto) 0.62 K/uL (0.11-0.59); Monocytes % (auto) 5.7 %; Neutrophils # (auto) 8.74 K/uL (1.4-6.5); Neutrophils % (auto) 80.1 %; Platelet Count 152 K/uL (130-400); RDW Coefficient of Variation 15.2 % (11.5-14.5); Red Blood Count 3.78 M/uL (4.2-5.4); White Blood Count 10.91 K/uL (4.8-10.8)
[2021-11-09] MEDS: FERROUS SULFATE 325 MG TAB PO SCH (08:13)
[2021-11-09] MEDS: oxyCODONE/ACETAMINOPHEN 5mg/325mg TAB PO PRN ×4 (08:13→20:47)
[2021-11-09] MEDS: IBUPROFEN 600 MG TAB PO PRN ×4 (08:13→23:40)
[2021-11-09] MEDS: SIMETHICONE 80 MG CHEW PO SCH ×5 (08:14→20:41)
[2021-11-09] MEDS: DOCUSATE SODIUM 100 MG CAP PO SCH ×2 (08:14→20:41)
[2021-11-09] MEDS: PRENATAL VITAMIN 1 TAB PO SCH (08:14)
--- NOTE | 2021-11-09 08:46 | Obstetrical Progress Note ---
Date of Service November 09, 2021 Assessment & Plan (1) Postcesarean section: Plan: 26yo POD 1 s/p LTCS) at 38 weeks. Dichorionic diamniotic twin . -Continue routine care -Vitals reviewed- HDS, afebrile -GBS neg -Encourage ambulation, void trial, advance diet -Pain control with ibuprofen, acetaminophen PRN -Encourage -Hgb 11.3 stable -will continue to monitor, f/u in 6 weeks with OB after discharge Admission and Anticipated Discharge Date Admission Date: November 08, 2021 Supervising Physician Co-Signing Physician Notes Resident Physician Supervision Note: I interviewed and examined the patient. Discussed with Dr. Carranza and agree with findings and plan as documented in the note. Any exceptions or clarifications are listed here: Documented By: Barbara Rivas MD, FACOG Subjective Ambulation: some Voiding: no, goode removed 0400 Passing Gas: no BM: no Diet Tolerance: fluids with some crackers, denies N/V Lochia: small Feeding Type: Current Pain Level(1-10): 2 Review of Systems Review of Systems: Denies fevers/chills. Denies dyspnea, cough. Denies chest pain. Denies headache. Denies back pain. Physical Exam Physical Exam: General: Alert, oriented, no acute distress Cardiac: Regular rate and rhythm, normal S1, S2. No murmurs appreciated. Respiratory: Clear to auscultation b/l with good air flow entry, symmetric chest rise and fall. No wheezes or crackles. No increased work of breathing or ac cessory muscle use Abdomen: Soft, mild fundal tenderness, nondistended. Fundus firm and palpable at cm below umbilicus. Surgical incision glued, clean, dry and intact without erythema, warmth or drainage. Bowel sounds appreciated. No guarding or rebound. Skin: No rashes or lesions Extremities: Warm, dry, well-perfused with capillary refill <2s b/l. No lower extremity edema, erythema or swelling. Negative Ange's sign b/l. Results & Data ([facility]) Vital Signs (Past 12 Hours) Vital Signs Temp Pulse Resp BP Pulse Ox 11/09/21 04:23 36.8 C 80 16 105/75 98 11/09/21 03:30 82 H 96 11/09/21 02:30 14 95 06/11/22 01:30 16 95 11/09/21 00:30 16 96 11/08/21 23:30 36.5 C 85 18 114/84 96 11/08/21 22:30 14 94 11/08/21 21:30 18 95 Resident Activity Tracking Resident Involvement: Resident Care Provided Care Provided: OB Delivery
[2021-11-09] MEDS ORDERED: bisacodyL 5 MG TABEC PO SCH (20:00)
[2021-11-10] MEDS: IBUPROFEN 600 MG TAB PO PRN ×2 (04:30→09:14)
[2021-11-10] MEDS: oxyCODONE/ACETAMINOPHEN 5mg/325mg TAB PO PRN ×2 (04:31→09:14)
[2021-11-10 06:47] LABS: Hematocrit (blood only) 32.3 % (37-47); Hemoglobin 10.4 g/dL (12.0-16.0)
[2021-11-10] MEDS: PRENATAL VITAMIN 1 TAB PO SCH (09:14)
[2021-11-10] MEDS: DOCUSATE SODIUM 100 MG CAP PO SCH (09:14)
[2021-11-10] MEDS: SIMETHICONE 80 MG CHEW PO SCH (09:15)
[2021-11-10] MEDS: FERROUS SULFATE 325 MG TAB PO SCH (09:15)
--- NOTE | 2021-11-10 09:22 | Obstetrical Progress Note ---
Date of Service November 10, 2021 Assessment & Plan (1) Postcesarean section: satisfactory / post-op progress discharge to home scripts for percocet and motrin sent to pharmacy follow up in 6 weeks. Subjective Ambulation: ambulating normally Voiding: no voiding problems Passing Gas:: Yes Diet Tolerance:: regular diet Lochia:: Small Feeding Type:: breast feeding Review of Systems All systems reviewed & are unremarkable except as noted in HPI & below Physical Exam Constitutional WD/WN, vitals as above Gastrointestinal (Abdomen) Inspection/Auscultation: + abdominal surgical incision (dry and intact) Psychiatric A+Ox3, euthymic affect Genitourinary OB Exam Abdomen: + fundal height Fundus: + firm and + relation to umbilicus (2 below U) Results & Data ([facility]) Vital Signs (Past 12 Hours) Vital Signs Temp Pulse Resp BP Pulse Ox 11/09/21 23:35 97.5 F L 78 18 122/76 98
[2021-11-10] MEDS ORDERED: bisacodyL 10 MG SUPP PR PRN (11:18)
--- NOTE | 2021-11-11 08:08 | Discharge Summary (DS) ---
DATE OF ADMISSION: 11/08/2021 DATE OF DISCHARGE: 11/10/2021. PRINCIPAL DIAGNOSIS: Dichorionic diamniotic twin gestation and unwanted fertility. PRINCIPAL PROCEDURE: Primary low transverse section and bilateral modified [place] tubal ligation. HISTORY: The patient is a 26-year-old, 3, para 2-0-0-2 female with an EDC of 11/22/21 who presents at 38 weeks for primary section. The patient is requesting elective section regardless of the twin's presentation. She is also requesting tubal ligation at the time the section for unwanted fertility. She understands the risks of procedure and was willing to proceed. HOSPITAL COURSE: The section and tubal ligation was done without any complications. She had an uncomplicated postop course. She remained afebrile throughout her hospital stay. She was eating regular diet on her first postop day, ambulating and voiding without difficulty as well. Hemoglobin on admission was 12.8, hematocrit of 38.5. First postop day hemoglobin 11.3, hematocrit of 34.3. Second postop day, hemoglobin 10.4, hematocrit 32.3. She is being sent home in good condition with prescriptions for Percocet 1 tablet p.o. q.6h. p.r.n. pain, Motrin 600 mg p.o. 6 hours p.r.n. pain. She is to call if she has a temperature of 101 degrees or higher, heavy vaginal bleeding, burning with urination, increased redness, drainage or pain in her incision, breast tenderness or redness, calf tenderness or any other concerns. She is to be seen in the office in 6 weeks for a followup visit. Job ID: [id number] [facility]
== END 2021-11-10 11:40 | disposition home or self-care (01) | DRG 785 ==
LOC: EDSTATUS 07:30 → 4S1 08:09 → 4E2 14:21
PROC: M.PPTLD (2021-11-08 10:00)